=== PATIENT | male | born 1995 | race Caucasian/White ===

== ENCOUNTER → 2017-01-05 | Outpatient (CLI) | payer OTHER ==
[2017-01-05 16:02] LABS: INR 1.12
== END ==
LOC: M LAB 14:59
PROVIDERS: ATTEND Neurological Surgery
DX: Z01.818 Encounter for other preprocedural examination (principal)

== ENCOUNTER → 2017-01-17 | Outpatient (CLI) | payer OTHER ==
--- NOTE | 2017-01-17 16:40 | REP ---
LUMBAR PUNCTURE: The procedure was performed by DANETTE Orozco under the direct supervision of Dr. Devine. The procedure along with its risks, benefits, and complications were discussed with the patient prior to the procedure. Informed consent was obtained both verbally and written. The patient entered into the x-ray room where he was placed prone on the x-ray table. A procedural time out was performed to ensure that the correct patient, site and procedure were being performed. The area was prepped and draped in the usual sterile fashion. 1% lidocaine was used for local anesthesia. Lumbar puncture was performed under fluoroscopic guidance with strict aseptic precautions at L2-3 via a right oblique sublaminar approach using a 3.5 inch 20-gauge spinal needle. Retrograde free flow of clear CSF was obtained. An opening pressure of 12.5 mmHg over water was obtained. 13 mL of CSF was collected and sent to the lab for further evaluation. Fluoroscopy time was 7 seconds. There were no immediate complications. The patient returned to interventional radiology where nursing staff will observe him for an hour before discharging him. Reviewed by DANETTE Maynard 01/18/2017 12:50 PEdited and Signed by Kermit Devine MD 01/18/2017 01:43 P
== END ==
LOC: M RADPRO 12:59 → EDUNIT# 14:00
PROVIDERS: ATTEND Neurological Surgery
DX: R51 Headache (principal); F17.210 Nicotine dependence, cigarettes, uncomplicated; Z79.899 Other long term (current) drug therapy

== ENCOUNTER → 2017-01-17 | Outpatient (CLI) | payer OTHER ==
[2017-01-17 14:29] LABS: COLLAGEN ADP 105 SECONDS (56-103)
[2017-01-17 16:45] LABS: APPEARANCE, CSF CLEAR (CLEAR); COLOR, CSF COLORLESS (COLORLESS); CSF DIFF IF INDICATED? NO (NO); CSF DILUENT LOT # 6277; CSF TUBE# CELL CNT TUBE 3; RBC CSF AUTO 18 /mm3 (0-0); WBC CSF AUTO 2 /mm3 (0-10)
[2017-01-17 17:14] LABS: GLUCOSE CSF 59 MG/DL (40-75)
== END ==
LOC: M LAB 13:28
PROVIDERS: ATTEND Neurological Surgery
DX: Z01.818 Encounter for other preprocedural examination (principal)